=== PATIENT | female | born 1960 | race Caucasian/White ===

== ENCOUNTER 2016-09-11 17:30 | Inpatient (IN) | payer MEDICARE, OTHER ==
[~2016-09-11] VITALS: Ht 165.1 cm; Wt 51.3 kg
[2016-09-12] MEDS ORDERED: ATORVASTATIN CA40 MG PO (00:15)
[2016-09-12] MEDS ORDERED: BREO ELLIPTA 11 EACH INH (00:15)
[2016-09-12] MEDS ORDERED: ROBITUSSIN DM473 ML PO (00:16)
[2016-09-12] MEDS ORDERED: ROBITUSSIN200 MG/10 PO (00:17)
[2016-09-12] MEDS ORDERED: NEURONTIN 400400 MG PO (00:18)
[2016-09-12] MEDS ORDERED: NITROSTAT0.4 MG SL (00:19)
[2016-09-12] MEDS ORDERED: NORCO 5-325 TA1 EACH PO (00:20)
[2016-09-12] MEDS ORDERED: PHENERGAN6.25 MG/5 PO (00:21)
[2016-09-12] MEDS ORDERED: PROZAC40 MG PO (00:22)
[2016-09-12] MEDS ORDERED: SEROQUEL100 MG PO (00:22)
[2016-09-12] MEDS ORDERED: ZANTAC150 MG PO (00:24)
[2016-09-12] MEDS ORDERED: VENTOLIN HFA 66.7 GM INH (00:24)
[2016-09-12 05:57] LABS: HEMOGLOBIN 9.9 gm/dl (12.3-15.3); RED BLOOD COUNT 3.55 M/UL (4.00-5.10); WHITE BLOOD COUNT 7.4 K/UL (4.5-11.0)
[2016-09-12 06:22] LABS: BUN/CREATININE RATIO 30 (0-10)
[2016-09-13 05:42] LABS: HEMOGLOBIN 8.8 gm/dl (12.3-15.3); RED BLOOD COUNT 3.15 M/UL (4.00-5.10); WHITE BLOOD COUNT 8.5 K/UL (4.5-11.0)
[2016-09-13 06:11] LABS: BUN/CREATININE RATIO 30 (0-10)
--- NOTE | 2016-09-14 03:56 | NUR ---
PT'S IV INFILTRATED WHILE 0100 DOSE OF DOXYCYCLINE BEING ADMINISTERED. IV REMOVED AND CARE PROVIDED. [address] AN IV, NONE WERE SUCCESSEFUL. NOTIFIED AND STATED PT WOULD BE OKAY WITH NO IV ACCESS FOR TONIGHT.
[2016-09-14 07:06] LABS: HEMOGLOBIN 8.8 gm/dl (12.3-15.3); RED BLOOD COUNT 3.14 M/UL (4.00-5.10); WHITE BLOOD COUNT 9.1 K/UL (4.5-11.0)
[2016-09-14 07:29] LABS: BUN/CREATININE RATIO 53 (0-10)
[2016-09-15 05:40] LABS: HEMOGLOBIN 9.3 gm/dl (12.3-15.3); RED BLOOD COUNT 3.32 M/UL (4.00-5.10); WHITE BLOOD COUNT 8.9 K/UL (4.5-11.0)
[2016-09-15 05:42] LABS: BUN/CREATININE RATIO 58 (0-10)
== END 2016-09-17 21:00 | DRG 470 ==
LOC: M/S 17:30 → MED SURG 4 21:11 → M/S 09-13 19:28
PROVIDERS: Orthopaedic Surgery; ADMIT Family Medicine
PROC: 3E0T3CZ (ICD-10-PCS; 2016-09-12)
PROC: 0SRR01A Replacement of Right Hip Joint, Femoral Surface with Metal Synthetic Substitute, Uncemented, Open Approach (ICD-10-PCS; principal; 2016-09-12 10:45)
DX: S72.001A Fracture of unspecified part of neck of right femur, initial encounter for closed fracture (principal); M87.851 Other osteonecrosis, right femur; J44.0 Chronic obstructive pulmonary disease with (acute) lower respiratory infection; J96.11 Chronic respiratory failure with hypoxia; E44.1 Mild protein-calorie malnutrition; Z68.1 Body mass index [BMI] 19.9 or less, adult; F11.20 Opioid dependence, uncomplicated; S72.111A Displaced fracture of greater trochanter of right femur, initial encounter for closed fracture; W01.0XXA Fall on same level from slipping, tripping and stumbling without subsequent striking against object, initial encounter; Y92.008 Other place in unspecified non-institutional (private) residence as the place of occurrence of the external cause; J20.9 Acute bronchitis, unspecified; J45.909 Unspecified asthma, uncomplicated; I25.10 Atherosclerotic heart disease of native coronary artery without angina pectoris; D50.9 Iron deficiency anemia, unspecified; I10 Essential (primary) hypertension; G89.4 Chronic pain syndrome; F17.210 Nicotine dependence, cigarettes, uncomplicated; Z95.1 Presence of aortocoronary bypass graft; Z95.5 Presence of coronary angioplasty implant and graft; Z86.73 Personal history of transient ischemic attack (TIA), and cerebral infarction without residual deficits; Z99.81 Dependence on supplemental oxygen; Z79.51 Long term (current) use of inhaled steroids; Z79.899 Other long term (current) drug therapy; Z88.6 Allergy status to analgesic agent; Z88.0 Allergy status to penicillin; Z90.710 Acquired absence of both cervix and uterus; Z98.890 Other specified postprocedural states
CPT/HCPCS: ECHO; 36415; 71010; 72170; 80048; 80053; 81001; 82550; 82553; 83735; 83880; 84484; 85025; 87086; 93005; 93306; 94640; 94664; 97110; 97116; 97530; C1713; C1776; C9113; J1644; J1650; J2270; J2370; J2710; J2795; J2920; J3370; J7030; J7120; J7509